=== PATIENT | female | born 1955 | race American Indian/Alaskan Native ===

== ENCOUNTER 2017-10-16 11:58 | Day surgery (SDC) | payer MEDICAID ==
[2017-10-16] MEDS ORDERED: NACL 0.9% 1000 ML 1,000 ML IV SCH (13:00)
[2017-10-16] MEDS ORDERED: XYLOCAINE MPF 2% ONE (15:00)
[2017-10-16] MEDS ORDERED: DIPRIVAN 10 MG/ML IV ONE ×4 (15:37→16:15)
[2017-10-16] MEDS ORDERED: XYLOCAINE 2% INFILTRATI ONE (15:38)
--- NOTE | 2017-10-16 15:48 | Anesthesia Consultation ---
Anesthesia Consult and Med Hx Date of service: 10/16/17 - Airway Anesthetic Teeth Evaluation: Poor, Chipped (front left ) ROM Head & Neck: Adequate Mental/Hyoid Distance: Adequate Mallampati Class: Class II Intubation Access Assessment: Probably Good - Pulmonary Exam CTA: Yes - Cardiac Exam Cardiac Exam: RRR - Pre-Operative Health Status ASA Pre-Surgery Classification: ASA3 Proposed Anesthetic Plan: MAC - Pulmonary Hx Smoking: Yes (quit 2 yrs ago) COPD: Yes - Cardiovascular System Hx Hypertension: Yes - Gastrointestinal Hx Gastroesophageal Reflux Disease: Yes - Other Systems Hx Obesity: Yes
--- NOTE | 2017-10-16 15:48 | Anesthesia Day of Surgery ---
Anesthesia Day of Surgery - Day of Surgery Patient Examined: Yes Patient H&P Reviewed: Yes Patient is NPO: Yes
[2017-10-16] MEDS ORDERED: WATER FOR IRRIG STERILE ONE (15:53)
--- NOTE | 2017-10-16 16:35 | Operative Report ---
Operative Report Operative Report: Date of procedure: 10/16/2017 Procedure: Colonoscopy with Multiple Polyp ablations and Hot Biopsy Polypectomies. Attending physician: Mack Whitehead MD Instructor Nurse: Mack Whitehead MD Indication: Patient is a 62-year-old female who presents with a history of blood in stool constipation and weight loss. She has a past history of colon polyps as well.. This colonoscopy serves to evaluate patient so that treatment may be directed based on the findings. Consent: Informed consent was obtained after advising the patient and family regarding nature of this procedure, its indications, potential benefits as well as possible complications including but not limited to bleeding perforation and adverse reaction to medication, infection as well as other cardiopulmonary complications. An informed written and verbal consent was then obtained after due opportunity was provided for questions and answers. Monitoring: Patient was monitored continuously with pulse oximetry and electrocardiographic recordings as well as blood pressure recordings. Vital signs remained stable throughout this procedure with no untoward events. Preoperative assessment: Patient was assessed immediately prior to this procedure for capacity to tolerate monitored anesthesia care and moderate sedation as well as general anesthesia. Patient's ASA classification is 2, Mallampati class is 2, Hyomental distance is 3. Instrument: [employer] video colonoscope Medications: Propofol given intravenously in divided doses. For details please refer to anesthesia records. Description of procedure: Patient was placed in the left lateral decubitus position after achieving sedation, a digital rectal examination was performed following which the colonoscope was introduced into the anal verge and advanced to the cecum which was identified by the cecal valve, the appendiceal orifice, as well as by the cecal strap and direct transillumination. The colonoscope was subsequently withdrawn with careful inspection of all mucosal surfaces. Patient tolerated this procedure well and was subsequently taken to the recovery room. The following findings were noted. Findings: Patient had multiple diminutive flat polyps in the rectum measuring about 3-5 mm. These were ablated. There were also a few diminutive polyps in the sigmoid colon which measured 3-7 mm. Some of these were ablated completely. Some were removed by hot biopsy polypectomy and retrieved. There was a prominent post polypectomy site that was tattooed in the ascending colon. This appeared elevated. There however was no obvious polyp tissue at the site. Biopsies were obtained from this site for histopathology. This was done to make sure there was no residual polyp tissue. Subsequently, a Hemoclip was placed over the site as it bled post biopsy. The rest of the colon to the cecum was normal. On the retroflex view at the anal verge, patient had internal hemorrhoids. Impression: Multiple diminutive rectal and sigmoid colon polyps status post hot biopsy polypectomy and polyp ablation. Tattooed post polypectomy site in the ascending colon status post biopsies and Hemoclip application secondary to bleeding. Internal hemorrhoids. Plan: Follow pathology report. High-fiber diet. If there is residual polyp tissue at the biopsied post polypectomy site, then consideration should be given to a limited resection of this area. Patient will be followed up as an outpatient.
--- NOTE | 2017-10-16 16:36 | Discharge Summary ---
Short Stay Discharge Plan Activity: advance as tolerated Weight Bearing Status: Weight Bear as Tolerated Diet: regular Follow up with: LAXMI KIMBROUGH MD [Primary Care Provider] - 7 Days
[2017-10-16 16:56] VITALS: BP 139/52
== END 2017-10-16 11:59 | disposition home or self-care (01) ==
LOC: GIO 11:58
PROVIDERS: ATTEND Internal Medicine Gastroenterology
DX: K63.5 Polyp of colon (principal); K92.1 Melena; K59.00 Constipation, unspecified; K21.9 Gastro-esophageal reflux disease without esophagitis; J44.9 Chronic obstructive pulmonary disease, unspecified; I10 Essential (primary) hypertension; I25.2 Old myocardial infarction; E78.00 Pure hypercholesterolemia, unspecified; E66.9 Obesity, unspecified; Z98.51 Tubal ligation status; Z98.890 Other specified postprocedural states; Z95.0 Presence of cardiac pacemaker; Z88.8 Allergy status to other drugs, medicaments and biological substances; Z88.6 Allergy status to analgesic agent; Z87.891 Personal history of nicotine dependence; Z68.25 Body mass index [BMI] 25.0-25.9, adult
CPT/HCPCS: 45381; 45384; 45388; 88305; J2704; J7030

== ENCOUNTER 2017-10-30 10:26 | Day surgery (SDC) | payer MEDICAID ==
[~2017-10-30 10:26] MED LIST: WATER FOR IRRIG STERILE IR ONE
--- NOTE | 2017-10-30 11:52 | Anesthesia Consultation ---
Anesthesia Consult and Med Hx Date of service: 10/30/17 - Airway Anesthetic Teeth Evaluation: Good ROM Head & Neck: Adequate Mental/Hyoid Distance: Adequate Mallampati Class: Class I Intubation Access Assessment: Good - Pulmonary Exam CTA: Yes - Cardiac Exam Cardiac Exam: RRR - Pre-Operative Health Status ASA Pre-Surgery Classification: ASA2 Proposed Anesthetic Plan: IV Sedation - Pulmonary Hx Smoking: Yes (quit 2 yrs ago) Hx Asthma: No COPD: Yes Hx Sleep Apnea: No - Cardiovascular System Hx Hypertension: Yes - Central Nervous System Hx Psychiatric Problems: No - Gastrointestinal Hx Gastroesophageal Reflux Disease: Yes - Hematic Hx Anemia: No - Other Systems Hx Cancer: No Hx Obesity: Yes
--- NOTE | 2017-10-30 11:53 | Anesthesia Day of Surgery ---
Anesthesia Day of Surgery - Day of Surgery Patient Examined: Yes Patient H&P Reviewed: Yes Patient is NPO: Yes
[2017-10-30] MEDS ORDERED: NACL 0.9% 1000 ML 1,000 ML IV SCH (12:00)
[2017-10-30] MEDS ORDERED: DIPRIVAN 10 MG/ML IV ONE ×2 (12:04→12:32)
--- NOTE | 2017-10-30 12:36 | Operative Report ---
Operative Report Operative Report: Date: 10/30/2017 Operative Report: Date of procedure: 10/30/2017 Procedure: Esophagogastroduodenoscopy with wire-guided savory dilation of the esophagus, multiple mucosal biopsies. Attending physician: Mack Whitehead MD Building Official: Mack Whitehead MD Indication: Patient is a 62 -year-old male who presented with a history of recurrent epigastric pain, heartburn and indigestion. Patient also complains of dysphagia to solids lately. An upper endoscopy is done to assess patient, so that treatment may be directed based on the findings. Consent: Informed consent was obtained after advising the patient and family regarding nature of this procedure, its indications, potential benefits as well as possible complications including but not limited to bleeding perforation and adverse reaction to medication, infection as well as other cardiopulmonary complications. An informed written and verbal consent was then obtained after due opportunity was provided for questions and answers. Monitoring: Patient was monitored continuously with pulse oximetry and electrocardiographic recordings as well as blood pressure recordings. Vital signs remained stable throughout this procedure with no untoward events. Preoperative assessment: Patient was assessed immediately prior to this procedure for capacity to tolerate monitored anesthesia care and moderate sedation as well as general anesthesia. Patient's ASA classification is 2, Mallampati class is 2, Hyomental distance is 3. Instrument: [employer] video endoscope Medications: Propofol given intravenously in divided doses. For details please refer to anesthesia records. Description of procedure: Patient was placed in the left lateral decubitus position after achieving sedation, the endoscope was introduced into the esophagus under direct vision. It was then advanced beyond the esophagus into the stomach and then beyond the stomach into the duodenum and to the second portion of the duodenum. It was subsequently withdrawn with careful inspection of all mucosal surfaces with the following findings. Findings: Patient had mild erosive esophagitis involving the distal esophagus.. Patient has an irregular Z line at 38 cm. The esophagus was mildly tortuous. A guidewire was passed and a 45 [place] savory dilator was then passed over the guidewire to dilate the esophagus given patient's complaints of dysphagia. There were mucosal changes in the gastric cardia and also in the gastric fundus and body suggestive of some underlying gastropathy. There was erythema and erosions in the gastric antrum. Biopsies of the antrum were obtained to rule out gastritis. The duodenum was normal to second portion. Impression: Mild erosive esophagitis. Tortuous esophagus. Patient is status post wire-guided savory dilation of the distal esophagus. Irregular Z line. Gastropathy involving the proximal stomach Gastric antral erythema Mucosal changes suggestive of underlying gastritis. Plan: Continue treatment with proton pump inhibitors. Follow pathology report. Direct additional treatment based on the pathology report. Patient will be observed clinically. Additional recommendations will be made follow-up.
--- NOTE | 2017-10-30 12:37 | Discharge Summary ---
Short Stay Discharge Plan Activity: advance as tolerated Weight Bearing Status: Weight Bear as Tolerated Diet: regular Follow up with: KENNEDY STRAUSS MD [Primary Care Provider] - 7 Days
[2017-10-30 12:41] VITALS: BP 108/69
== END 2017-10-30 10:27 | disposition home or self-care (01) ==
LOC: GIO 10:26
PROVIDERS: ATTEND Internal Medicine Gastroenterology
PROC: 0D748ZZ Dilation of Esophagogastric Junction, Via Natural or Artificial Opening Endoscopic (ICD-10-PCS; principal; 2017-10-30)
DX: K21.0 Gastro-esophageal reflux disease with esophagitis (principal); K29.50 Unspecified chronic gastritis without bleeding; K22.9 Disease of esophagus, unspecified; K31.9 Disease of stomach and duodenum, unspecified; I25.2 Old myocardial infarction; J44.9 Chronic obstructive pulmonary disease, unspecified; E66.9 Obesity, unspecified; Z68.26 Body mass index [BMI] 26.0-26.9, adult; Z95.0 Presence of cardiac pacemaker; Z86.010 Personal history of colon polyps; Z98.890 Other specified postprocedural states; Z98.51 Tubal ligation status; Z87.891 Personal history of nicotine dependence; Z88.8 Allergy status to other drugs, medicaments and biological substances
CPT/HCPCS: 43239; 43248; 88305; 88342; J2704; J7030

== ENCOUNTER 2019-07-24 11:41 | Outpatient (CLI) | payer MEDICAID ==
--- NOTE | 2019-07-24 15:21 | Mammography Report ---
DIGITAL SCREENING MAMMOGRAM WITH CAD, 07/24/2019 INDICATION: Routine screening mammography. TECHNIQUE: Digital bilateral 2D mammography was obtained in the craniocaudal and mediolateral obliq ue projections. This examination was interpreted with the benefit of Computer-Aided Detection analysi s. COMPARISON: 04/18/2011 FINDINGS: Breast Density: The breasts are heterogeneously dense, which may obscure small masses. There is no evidence of dominant mass, suspicious calcifications or architectural distortion in eithe r breast. Bilateral benign arterial calcifications. IMPRESSION: No mammographic evidence of malignancy. Follow up recommendation: Routine yearly BI-RADS Category 2: Benign. A "normal" or negative report should not discourage follow up or biopsy of a clinically significant f inding. A written summary of these findings will be mailed to the patient. The patient will be entered into a mammography reporting system which will generate a reminder letter for the patient's next appointmen t at the appropriate interval. The [employer] recommends yearly mammograms starting at age 40 and continuing as l kristopher as a woman is in good health. Breast MRI is recommended for women with an approximate 20-25% or greater lifetime risk of breast cancer, including women with a strong family history of breast or ova marce cancer or who have been treated for Hodgkin's disease. Signer Name: Donald Blake MD Signed: 07/24/2019 3:16 PM Workstation Name: [id number]
== END 2019-07-24 11:42 | disposition home or self-care (01) ==
LOC: MAMMO 11:41
PROVIDERS: ATTEND Internal Medicine
DX: Z12.31 Encounter for screening mammogram for malignant neoplasm of breast (principal)
CPT/HCPCS: 77067

== ENCOUNTER 2021-11-04 20:25 | Emergency (ER) | payer MEDICAID ==
--- NOTE | 2021-11-05 04:16 | Emergency Department Report ---
ED Lower Extremity HPI - General Chief Complaint: Extremity Injury, Lower Stated Complaint: FELL LEG PAIN Time Seen by Provider: 11/05/21 04:10 Source: patient Mode of arrival: Ambulatory Limitations: No Limitations - History of Present Illness Initial Comments: Patient is a 66-year-old female who presents for right lower extremity pain. Patient states she fell 2 days ago. Now with aching to her right lower leg and ankle. Patient has history of trauma the same with ORIF to the right lower extremity. Patient complains of 4/10 pain described as aching. Symptoms are exacerbated by prolonged walking and standing and environmental exposure. Patient does endorse history of chronic arthralgia. There is no laceration bleeding or other wound per patient. Patient remains ambulatory with steady gait. There is no acute distress patient is alert oriented x3 at this time. Patient denies other complaint at this time MD Complaint: leg injury - Related Data Home Medications Medication Instructions Recorded Confirmed Last Taken AtorvaSTATin 20 mg PO DAILY 01/28/15 10/30/17 10/29/17 Flonase 1 spray INNOSTRIL DAILY 01/28/15 10/30/17 10/29/17 NIFEdipine 1 tab PO DAILY 01/28/15 10/30/17 10/29/17 Vitamin B-12 1 tab PO DAILY 01/28/15 10/30/17 10/29/17 Omeprazole 40 mg PO DAILY 10/16/17 10/30/17 10/29/17 Previous Rx's Medication Instructions Recorded Last Taken Type Acetaminophen [Tylenol] 1,000 mg PO Q6HR PRN #60 tablet 11/05/21 Unknown Rx Menthol/Camphor [[employer] 1 applicatio TP QID PRN #1 tube 11/05/21 Unknown Rx Ointment] Allergies Allergy/AdvReac Type Severity Reaction Status Date / Time ibuprofen [From Motrin] Allergy Vomiting Verified 01/28/15 09:18 ED Review of Systems ROS: Stated complaint: FELL LEG PAIN Other details as noted in HPI Constitutional: denies: chills, fever Eyes: denies: eye pain, eye discharge, vision change ENT: denies: ear pain, throat pain Respiratory: denies: cough, shortness of breath, wheezing Cardiovascular: denies: chest pain, palpitations Endocrine: no symptoms reported Gastrointestinal: as per HPI Genitourinary: denies: urgency, dysuria, discharge Musculoskeletal: arthralgia, other (right lower leg pain). denies: back pain, joint swelling Skin: denies: rash, lesions Neurological: denies: headache, weakness, paresthesias Psychiatric: denies: anxiety, depression Hematological/Lymphatic: denies: easy bleeding, easy bruising ED Past Medical Hx - Past Medical History Hx Hypertension: Yes Hx Congestive Heart Failure: (CARDIOMEGALY) Hx Asthma: No Hx COPD: Yes Hx HIV: No - Surgical History Hx Breast Surgery: Yes (RT BREAST SURGERY) - Social History Smoking Status: Former Smoker - Medications Home Medications: Home Medications Medication Instructions Recorded Confirmed Last Taken Type AtorvaSTATin 20 mg PO DAILY 01/28/15 10/30/17 10/29/17 History Flonase 1 spray INNOSTRIL DAILY 01/28/15 10/30/17 10/29/17 History NIFEdipine 1 tab PO DAILY 01/28/15 10/30/17 10/29/17 History Vitamin B-12 1 tab PO DAILY 01/28/15 10/30/17 10/29/17 History Omeprazole 40 mg PO DAILY 10/16/17 10/30/17 10/29/17 History Acetaminophen [Tylenol] 1,000 mg PO Q6HR PRN #60 tablet 11/05/21 Unknown Rx Menthol/Camphor [[employer] 1 applicatio TP QID PRN #1 tube 11/05/21 Unknown Rx Ointment] ED Physical Exam - General Limitations: No Limitations General appearance: alert, in no apparent distress - Head Head exam: Present: normocephalic, normal inspection - Eye Eye exam: Present: normal appearance, PERRL, EOMI Pupils: Present: normal accommodation - ENT ENT exam: Present: mucous membranes moist - Neck Neck exam: Present: normal inspection, full ROM. Absent: tenderness - Respiratory Respiratory exam: Present: normal lung sounds bilaterally. Absent: wheezes, stridor, chest wall tenderness - Cardiovascular Cardiovascular Exam: Present: regular rate, normal heart sounds - GI/Abdominal GI/Abdominal exam: Present: soft, normal bowel sounds. Absent: distended, tenderness - Rectal Rectal exam: Present: deferred - Extremities Exam Extremities exam: Present: full ROM. Absent: tenderness, joint swelling, calf tenderness - Expanded Lower Extremity Exam Right Lower Leg exam: Present: full ROM. Absent: tenderness, swelling, abrasion, laceration, ecchymosis, deformity, crepidus, dislocation, erythema, palpable cord, Turner's sign Ankle exam: Present: full ROM. Absent: tenderness Foot/Toe exam: Present: full ROM. Absent: tenderness Neuro vascular tendon exam: Absent: pulse deficit, motor deficit, sensory deficit, tendon deficit Gait: Positive: observed and normal - Back Exam Back exam: Present: normal inspection, full ROM. Absent: muscle spasm, paraspinal tenderness, vertebral tenderness - Neurological Exam Neurological exam: Present: alert, oriented X3, CN II-XII intact, normal gait, reflexes normal. Absent: motor sensory deficit - Expanded Neurological Exam Expanded Patient oriented to: Present: person, place, time Speech: Present: fluid speech Motor strength exam: RUE: 5, LUE: 5, RLE: 5, LLE: 5 DTR: knee (R): 1+, knee (L): 1+ Best Eye Response ([place]): (4) open spontaneously Best Motor Response ([place]): (6) obeys commands Best Verbal Response ([place]): (5) oriented [place] Total: 15 - Psychiatric Psychiatric exam: Present: normal affect - Skin Skin exam: Present: warm, dry, intact, normal color. Absent: rash ED Course Vital Signs 11/04/21 11/05/21 20:47 04:40 Temperature 98.3 F Pulse Rate 71 Respiratory 20 14 Rate Blood Pressure 111/62 O2 Sat by Pulse 99 Oximetry ED Lower Extremity MDM - Radiology Data Radiology results: report reviewed, image reviewed RIGHT TIBIA-FIBULA 2 VIEW(S) INDICATION / CLINICAL INFORMATION: fall RLE pain COMPARISON: None available. FINDINGS: BONES / JOINT(S): No acute fracture or subluxation. No significant arthritis. Prior repair of bimalleolar ankle fracture. SOFT TISSUES: No significant abnormality. ADDITIONAL FINDINGS: None. IMPRESSION: 1. No acute pathology. Signer Name: Shahid Jones II, MD Signed: 11/05/2021 4:57 AM Workstation Name: [id number] Transcribed By: YUYR Dictated By: SHAHID JONES II, MD Electronically Authenticated By: SHAHID JONES II, MD Signed Date/Time: 11/05/21456 DD/ 5 TD/TT: - Medical Decision Making X-ray tib-fib normal no acute fracture no soft tissue abnormality previous ORIF hardware is intact. Physical exam is normal distal pulses are intact range of motion is intact and unrestricted there is no tenderness no swelling distal pulses intact. Patient is amatory with steady gait plan DC to home, Tylenol products as needed pain analgesic balm, follow-up with primary care doctor in 2 to 3 days. Return to emergency should symptoms worsen. Patient verbalizes agreement and understanding with discharge plan. Patient will be DC'd home in stable condition at this time. Critical care attestation.: If time is entered above; I have spent that time in minutes in the direct care of this critically ill patient, excluding procedure time. ED Disposition Clinical Impression: Arthralgia Qualifiers: Joint pain location: ankle Laterality: right Qualified Code(s): M25.571 - Pain in right ankle and joints of right foot Musculoskeletal pain of lower extremity Qualifiers: Laterality: right Qualified Code(s): M79.604 - Pain in right leg Disposition: HOME / SELF CARE / HOMELESS Is pt being admited?: No Does the pt Need Aspirin: No Condition: Stable Instructions: Musculoskeletal Pain, Ankle Pain, Joint Pain, [id number] Additional Instructions: Take medications as prescribed, knee ankle and joint exercises as directed. Follow-up with your doctor in 2 to 3 days. Keep annual orthopedics follow-up as directed by orthopedics. Return to emergency department should symptoms worsen. Prescriptions: Acetaminophen [Tylenol] 1,000 mg PO Q6HR PRN #60 tablet PRN Reason: Pain Menthol/Camphor [[employer] Ointment] 1 applicatio TP QID PRN #1 tube PRN Reason: pain Referrals: CLAUDY MCCULLOUGH MD [Primary Care Provider] - 3-5 Days FRANCA PATEL MD [Staff Physician] - 3-5 Days Time of Disposition: 05:33
[2021-11-05] MEDS: ACETAMINOPHEN 500 MG TAB PO ONE (04:40)
--- NOTE | 2021-11-05 05:01 | XRay Report ---
RIGHT TIBIA-FIBULA 2 VIEW(S) INDICATION / CLINICAL INFORMATION: fall RLE pain COMPARISON: None available. FINDINGS: BONES / JOINT(S): No acute fracture or subluxation. No significant arthritis. Prior repair of bimalle olar ankle fracture. SOFT TISSUES: No significant abnormality. ADDITIONAL FINDINGS: None. IMPRESSION: 1. No acute pathology. Signer Name: Sagar Jones II, MD Signed: 11/05/2021 4:57 AM Workstation Name: [id number]
[2021-11-05 05:40] VITALS: BP 162/58
== END 2021-11-05 05:41 | disposition home or self-care (01) ==
LOC: ED 20:25
DX: M25.571 Pain in right ankle and joints of right foot (principal); M79.604 Pain in right leg; I10 Essential (primary) hypertension; Z88.6 Allergy status to analgesic agent
CPT/HCPCS: 99283